=== PATIENT | male | born 1990 | race Two or more races ===

== ENCOUNTER 2019-01-22 20:53 | Emergency (ER) | payer SELFPAY ==
[~2019-01-22] VITALS: Ht 182.9 cm; Wt 111.1 kg
[2019-01-22 21:03] VITALS: BP 131/89
== END 2019-01-23 01:19 | disposition home or self-care (01) ==
LOC: ER 20:53
DX: S01.81XD Laceration without foreign body of other part of head, subsequent encounter (principal); X58.XXXD Exposure to other specified factors, subsequent encounter